=== PATIENT | male | born 1950 | race Caucasian/White ===

== ENCOUNTER → 2019-04-28 09:31 | Outpatient (BNVA) | payer MEDICARE, MEDICAID, SELFPAY | PROVIDERS: Family Provider Family Medicine; PCP Nurse Practitioner Family; Visit Provider Nurse Practitioner | DX: M51.16 Intervertebral disc disorders with radiculopathy, lumbar region (principal); M47.9 Spondylosis, unspecified; M54.2 Cervicalgia; F17.210 Nicotine dependence, cigarettes, uncomplicated; Z79.891 Long term (current) use of opiate analgesic | CPT/HCPCS: 99214 ==

== ENCOUNTER → 2019-06-23 09:50 | Outpatient (BNVA) | payer MEDICARE, MEDICAID, SELFPAY | PROVIDERS: Family Provider Family Medicine; PCP Nurse Practitioner Family; Visit Provider Anesthesiology | DX: Z76.89 Persons encountering health services in other specified circumstances (principal) ==

== ENCOUNTER → 2019-08-05 11:21 | Outpatient (BNVA) | payer MEDICARE, MEDICAID, SELFPAY | PROVIDERS: Family Provider Family Medicine; PCP Nurse Practitioner Family; Visit Provider Nurse Practitioner Family | DX: E11.9 Type 2 diabetes mellitus without complications (principal); I10 Essential (primary) hypertension; R79.89 Other specified abnormal findings of blood chemistry; Z12.5 Encounter for screening for malignant neoplasm of prostate | CPT/HCPCS: 80053; 83036; 84153; 84403; 84439; 84443 ==

== ENCOUNTER → 2019-08-10 10:44 | Outpatient (BNVA) | payer MEDICARE, MEDICAID, SELFPAY | PROVIDERS: Family Provider Family Medicine; PCP Nurse Practitioner Family; Visit Provider Nurse Practitioner Family | DX: E87.1 Hypo-osmolality and hyponatremia (principal) | CPT/HCPCS: 80053 ==

== ENCOUNTER → 2019-10-27 08:39 | Outpatient (BNVA) | payer MEDICARE, MEDICAID, SELFPAY | PROVIDERS: Family Provider Family Medicine; PCP Nurse Practitioner Family; Visit Provider Anesthesiology | DX: M51.16 Intervertebral disc disorders with radiculopathy, lumbar region (principal); M47.9 Spondylosis, unspecified; M54.9 Dorsalgia, unspecified; F17.210 Nicotine dependence, cigarettes, uncomplicated; Z79.891 Long term (current) use of opiate analgesic; Z71.6 Tobacco abuse counseling | CPT/HCPCS: 99214 ==

== ENCOUNTER → 2019-12-23 09:35 | Outpatient (BNVA) | payer MEDICARE, MEDICAID, SELFPAY | PROVIDERS: Family Provider Family Medicine; PCP Family Medicine; Visit Provider Nurse Practitioner | DX: M51.16 Intervertebral disc disorders with radiculopathy, lumbar region (principal); M54.2 Cervicalgia; M47.9 Spondylosis, unspecified; M54.9 Dorsalgia, unspecified; F98.8 Other specified behavioral and emotional disorders with onset usually occurring in childhood and adolescence; F17.210 Nicotine dependence, cigarettes, uncomplicated; Z79.891 Long term (current) use of opiate analgesic; Z71.6 Tobacco abuse counseling | CPT/HCPCS: 99214 ==

== ENCOUNTER → 2021-11-23 11:49 | Outpatient (BNVA) | payer MEDICARE, MEDICAID, SELFPAY | PROVIDERS: Family Provider Family Medicine; PCP Family Medicine; Visit Provider Internal Medicine | DX: I10 Essential (primary) hypertension (principal); E11.9 Type 2 diabetes mellitus without complications; Z79.84 Long term (current) use of oral hypoglycemic drugs; G47.30 Sleep apnea, unspecified; F17.210 Nicotine dependence, cigarettes, uncomplicated; R06.00 Dyspnea, unspecified; I45.10 Unspecified right bundle-branch block | CPT/HCPCS: 36415; 80053; 83880; 93005; 99204 ==

== ENCOUNTER → 2021-12-19 08:51 | Outpatient (BNVA) | payer MEDICARE, MEDICAID, SELFPAY | PROVIDERS: Family Provider Family Medicine; PCP Family Medicine; Visit Provider Podiatrist Foot & Ankle Surgery | DX: E11.42 Type 2 diabetes mellitus with diabetic polyneuropathy (principal); I73.9 Peripheral vascular disease, unspecified; L60.3 Nail dystrophy; M21.622 Bunionette of left foot; M21.621 Bunionette of right foot; M21.612 Bunion of left foot; M21.611 Bunion of right foot; M21.42 Flat foot [pes planus] (acquired), left foot; M21.41 Flat foot [pes planus] (acquired), right foot; M20.42 Other hammer toe(s) (acquired), left foot; M20.41 Other hammer toe(s) (acquired), right foot | CPT/HCPCS: 11721; 99204 ==

== ENCOUNTER → 2022-02-08 13:42 | Outpatient (BNVA) | payer MEDICARE, MEDICAID, SELFPAY | PROVIDERS: Family Provider Family Medicine; PCP Family Medicine; Visit Provider Nurse Practitioner Family | DX: I10 Essential (primary) hypertension (principal); F17.210 Nicotine dependence, cigarettes, uncomplicated | CPT/HCPCS: 99213 ==

== ENCOUNTER 2022-03-15 11:57 | Emergency (ER) | payer MEDICARE, MEDICAID, SELFPAY ==
[2022-03-15] VITALS (17 sets, daily range): BP systolic 167–194; BP diastolic 81–98; PULSE 94–107; RESP 10–22; TEMP 37.1; O2SAT 92–100; BMI 41.8
--- NOTE | 2022-03-15 12:03 | XR_ITS ---
WS: [id number] Exam: XR chest 1V portable [id number] Date/Time of Exam: 03/15/2022 12:03 PM Reason For Exam: dyspnea/cough No priors. The lungs are fully expanded. No acute infiltrates are noted. Mild bibasal plaque atelectasis. Heart size top limits normal. The mediastinum is normal in contour for technique. Unremarkable bony element s. XR/XR chest 1V portable [id number] IMPRESSION: 1. No acute cardio pulmonary process. 2. Mild bibasal plaque atelectasis.
--- NOTE | 2022-03-15 12:03 | ECG_ITS ---
[facility] Test Date: 2022-03-15 Pat Name: Tom Reyez Department: Room: Gender: Male Surgical Aide: : 1950 Requested By: Blane Patiño Order Number: [id number] Reuben MD: Asa Daley M.D. Measurements Intervals [place] Rate: 95 P: -21 TN: 102 QRS: -19 QRSD: 92 T: 135 QT: 326 QTc: 411 Interpretive Statements SINUS RHYTHM WITH SINUS ARRHYTHMIA WITH SHORT TN INTERVAL LOW QRS VOLTAGE IN PRECORDIAL LEADS [QRS DEFLECTION < 1.0 mV IN CHEST LEADS] ABNORMAL QRS-T ANGLE [QRS-T AXIS DIFFERENCE > 60] No previous ECG available for comparison Electronically Signed On 03-15-2022 12:55:25 LEAD CARGOMAN by Asa Daley M.D. [id number]
[2022-03-15 12:24] LABS: Basophils % 0.4 %; Eosinophils # 0.1 10^3/uL (0.0-0.8); Hemoglobin 9.6 g/dL (11.7-16.6); Lymphocytes # 1.1 10^3/uL (0.8-4.8); Mean Platelet Volume 9.6 fL (7.4-10.4); Monocytes # 0.5 10^3/uL (0.2-0.9); Monocytes % 5.6 %; Neutrophils # 7.75 10^3/uL (1.8-7.7); Neutrophils % 79.9 %; Nucleated Red Blood Cells % 0 %; Platelet Count 226 10^3/cmm (130-400); Red Cell Distribution Width 13.2 % (12.1-15.1); White Blood Count 9.7 10^3/uL (4.0-10.0)
[2022-03-15 12:46] LABS: Alanine Aminotransferase 17 U/L (0-41); Albumin Level 3.2 g/dL (3.5-5.2); Alkaline Phosphatase 92 U/L (40-130); Anion Gap 14.7 (5-19); Aspartate Amino Transferase 21 U/L (0-40); Blood Urea Nitrogen 35 mg/dL (8-23); Calcium 8.9 mg/dL (8.5-10.5); Carbon Dioxide 25 mmol/L (22-29); Chloride 105 mmol/L (98-107); Globulin 2.8 g/dL (1.3-4.6); Glucose 138 mg/dL (65-115); Osmolality Calculated 298 mOsm/kg (285-295); Potassium 5.7 mmol/L (3.5-5.1); Sodium 139 mmol/L (136-145); Total Bilirubin 0.2 mg/dL (0.15-1.2)
--- NOTE | 2022-03-15 13:13 | ED_ITS ---
HPI - SOB/Dyspnea General: Chief Complaint: Shortness of Breath/Dyspnea Stated Complaint: SOB Time Seen by Provider: 03/15/22 12:02 Source: patient Mode of arrival: ambulatory History of Present Illness: HPI Narrative: 71-year-old male presents emergency room planing of shortness of breath. He said increasing shortness of breath decreasing stamina for the last several days decedent walked 50 feet he stated he needed to use his CPAP to recover. Normally wears 2 mL per of oxygen per minute at night. He has a history of hypertension and COPD as well. Patient states he was seen in the local clinic s tarted on Lasix and discharged home with Flomax. Comes in today with persistent if not worsening symptoms. Interestingly he has not had a lot of orthopnea. MD elicited complaint: shortness of breath and cough Pertinent past history: COPD and congestive heart failure Onset (ago): day(s) Context: recent illness Timing: constant Severity: moderate Exacerbating factors: nothing Relieving factors: nothing Known history of: congestive heart failure Associated symptoms: Deny abdominal pain, chest congestion, chest pain, cough, diaphoresis, dizziness, extremity pain, fever(s), hemoptysis, lightheadedness, myalgias, nausea, orthopnea, palpitations, paresthesias, polydipsia, polyuria, rash, sense of impending doom, syncope or vomiting Treatment prior to arrival: none Review of Systems Const: Denies: fever(s), chills, fatigue, malaise or diaphoresis ENMT: Denies: throat pain, ear or mastoid pain, nasal discharge or nasal congestion Card: Reports: edema; Denies: chest pain, palpitations, lightheadedness, syncope or orthopnea Resp: Reports: dyspnea; Denies: productive cough, non-productive cough, wheezing, hemoptysis or chest congestion GI: Denies: abdominal pain, nausea or vomiting : Denies: flank pain, dysuria, urinary frequency or urinary urgency Musc: Denies: extremity pain Skin/Breast: Denies: rash or pruritus Neuro: Denies: dizziness Endo: Denies: polyuria or polydipsia [facility] ED PFSH: Medical History (Updated 03/15/22 @ 14:49 by Blane Lowe DO) ADD (attention deficit disorder) without hyperactivity COPD (chronic obstructive pulmonary disease) Enrolled in chronic care management Essential hypertension Long-term current use of opiate analgesic Low testosterone Lumbar disc disease with radiculopathy Pain management contract signed Sleep apnea Spondylosis Cervical and lumbar Tobacco use disorder Type 2 diabetes mellitus Surgical History History of total left hip replacement (2004) RIGHT SIDE - 2004 Hx of arthroscopic knee surgery (~1999) LEFT Hx of umbilical hernia repair (~1985) Family History Sister Hypertension Brother Diabetes Social History Smoking and tobacco status: current every day smoker cigarettes Packs smoked per day: 1 Alcohol intake: former Former alcohol use details: states that he has not drank in 15 years Lives independently: Yes History of recent travel: No Physical Exam Const: GENERAL APPEARANCE: cooperative and comfortable ORIENTATION/CONSCIOUSNESS: Yes awake, Yes oriented to person, Yes oriented to place and Yes oriented to time HENMT: COMMON NORMALS: normocephalic, atraumatic and hearing grossly normal bilaterally HEAD & SCALP: normocephalic and atraumatic Resp: COMMON NORMALS: normal respiratory effort, No retractions, No use of accessory muscles and clear to auscultation bilaterally AUSCULTATION: clear to auscultation bilaterally Cardio: COMMON NORMALS: regular rate, regular rhythm and No murmurs present (Cardio) RATE: regular rate RHYTHM: regular rhythm GI: COMMON NORMALS: Soft to palpation and No hepatosplenomegaly present AUSCULTATION: Yes normoactive bowel sounds PALPATION: Yes Soft to palpation, No Tenderness to palpation present (GI), No Guarding due to palpation present (GI) and Yes No hepatosplenomegaly present Extremity: COMMON NORMALS: normal to inspection, capillary refill normal, no clubbing, cyanosis or edema, no calf tenderness and no pedal edema GENERAL: Yes edema Neuro: SENSORIUM/ORIENTATION: Yes oriented to person, Yes oriented to place and Yes oriented to time Skin: COMMON NORMALS: no rashes or lesions noted GENERAL SKIN EXAM: no deedee hes or lesions noted Course Vital Signs: Vital signs: Vital Signs Temperature 98.7 F 03/15/22 12:05 Pulse Rate 99 03/15/22 15:30 Respiratory Rate 14 03/15/22 15:30 Blood Pressure 194/88 03/15/22 15:45 Pulse Oximetry 96 03/15/22 15:30 Oxygen Delivery Me thod 03/15/22 12:05 Oxygen Flow Rate 2 03/15/22 12:05 Fraction of Inspir ed Oxygen 2 03/15/22 13:32 MDM - SOB/Dyspnea Medical Decision Making Improved after diuresis in the ER along with nebulizers oxygen sats at baseline with 2 L. Heart rate improved we will discharge patient home. Increase his Lasix. His creatinine is elevated but on the labs we have its been trending and looks like around to is his baseline currently. Also put him on a steroid burst and taper and encourage aggressive use of nebulized medications. Medical Records I reviewed the patient's medical records. Lab Data I reviewed the patient's lab results. 03/15/22 12:00 03/15/22 12:00 Labs/Radiology: Radiology Impressions Chest X-Ray 03/15/22 12:03 IMPRESSION: 1. No acute cardio pulmonary process. 2. Mild bibasal plaque atelectasis. Laboratory Results WBC 9.7 10^3/uL (4.0-10.0) 03/15/22 12:00 RBC 3.00 10^6/uL (4.1-5.3) L 03/15/22 12:00 Hgb 9.6 g/dL (11.7-16.6) L 03/15/22 12:00 Hct 30.0 % (42.0-52.0) L 03/15/22 12:00 MCV 100.0 fl (80-94) H 03/15/22 12:00 MCH 32.0 pg (28.0-34.0) 03/15/22 12:00 MCHC 32.0 g/dL (30.0-36.0) 03/15/22 12:00 RDW 13.2 % (12.1-15.1) 03/15/22 12:00 Plt Count 226 10^3/cmm (130-400) 03/15/22 12:00 MPV 9.6 fL (7.4-10.4) 03/15/22 12:00 Neut % (Auto) 79.9 % 03/15/22 12:00 Lymph % (Auto) 11.0 % 03/15/22 12:00 [place] % (Auto) 5.6 % 03/15/22 12:00 Eos % (Auto) 1.0 % 03/15/22 12:00 Baso % (Auto) 0.4 % 03/15/22 12:00 Neut # (Auto) 7.75 10^3/uL (1.8-7.7) H 03/15/22 12:00 Lymph # (Auto) 1.1 10^3/uL (0.8-4.8) 03/15/22 12:00 [place] # (Auto) 0.5 10^3/uL (0.2-0.9) 03/15/22 12:00 Eos # (Auto) 0.1 10^3/uL (0.0-0.8) 03/15/22 12:00 Baso # (Auto) 0.0 10^3/uL (0.0-0.1) 03/15/22 12:00 Nucleated RBC % (auto) 0 % 03/15/22 12:00 Nucleated RBCs # 0.0 /100WBC 03/15/22 12:00 Sodium 139 mmol/L (136-145) 03/15/22 12:00 Potassium 5.7 mmol/L (3.5-5.1) H 03/15/22 12:00 Chloride 105 mmol/L (98-107) 03/15/22 12:00 Carbon Dioxide 25 mmol/L (22-29) 03/15/22 12:00 Anion Gap 14.7 (5-19) 03/15/22 12:00 BUN 35 mg/dL (8-23) H 03/15/22 12:00 Creatinine 2.0 mg/dL (0.7-1.2) H 03/15/22 12:00 GFR Calculation Not Reportable 03/15/22 12:00 Glucose 138 mg/dL (65-115) H 03/15/22 12:00 Calculated Osmolality 298 mOsm/kg (285-295) H 03/15/22 12:00 Calcium 8.9 mg/dL (8.5-10.5) 03/15/22 12:00 Total Bilirubin 0.2 mg/dL (0.15-1.2) 03/15/22 12:00 AST 21 U/L (0-40) 03/15/22 12:00 ALT 17 U/L (0-41) 03/15/22 12:00 Alkaline Phosphatase 92 U/L (40-130) 03/15/22 12:00 Total Protein 6.0 g/dL (6.6-8.7) L 03/15/22 12:00 Albumin 3.2 g/dL (3.5-5.2) L 03/15/22 12:00 Globulin 2.8 g/dL (1.3-4.6) 03/15/22 12:00 Discharge Plan Discharge Patient Disposition: Home Clinical Impression: Acute exacerbation of chronic obstructive airways disease, Congestive heart failure Condition: Stable Prescriptions: New ipratropium-albuterol 0.5 mg-3 mg(2.5 mg base)/3 mL solution for nebulization 3 ml inhalation Q6H PRN (Reason: shortness of breath or wheezing) Qty: 180 0RF prednisone 20 mg tablet 20 mg PO TID Qty: 15 0RF Rx Instructions: 1 p.o. 3 times daily x3 days, 1 p.o. twice daily x2 days, 1 p.o. daily x2 days Lasix 40 mg tablet 40 mg PO QAM Qty: 10 0RF No Action cholecalciferol (vitamin D3) 125 mcg (5,000 unit) capsule 125 mcg PO DAILY albuterol sulfate [ProAir HFA] 90 mcg/actuation HFA aerosol inhaler 2 puff inhalation QID fluticasone propionate [Flonase Allergy Relief] 50 mcg/actuation spray,heath spension 1 spray intranasal BID Rx Instructions: administer into each nostril hydrochlorothiazide 25 mg tablet 25 mg PO DAILY PRN (Reason: Edema) Dose Instruction: TAKE 1 TABLET BY MOUTH DAILY ibuprofen 200 mg capsule 200 mg PO Q6H PRN (Reason: Pain) naproxen sodium [Aleve] 220 mg capsule 220 mg PO DAILY PRN (Reason: Pain) metformin 850 mg tablet 850 mg PO BID Qty: 60 0RF celecoxib 200 mg capsule 200 mg PO BID tamsulosin 0.4 mg capsule 0.4 mg PO DAILY hydralazine 50 mg tablet 50 mg PO BID amlodipine 10 mg tablet 5 mg PO DAILY gemfibrozil 600 mg tablet 600 mg PO BID duloxetine 60 mg capsule,delayed release(DR/EC) 60 mg PO DAILY Men's 50 Plus Multivitamin 400-20-370 mcg Tablet 1 tab PO DAILY Discharge Orders: Discharge ED (Routine); Ordered 03/15/22 Ordered By: Blane Lowe Referrals: Ike Arzate MD [Primary Care Provider] - Discharge Diet: Cardiac Discharge Activity: Increase activity as tolerated Patient Instructions: Opioid Safety, Pain Management Activity Restrictions/Additional Instructions: You are seen today for difficulty breathing with mild congestive heart failure and exacerbation of COPD. You improved after nebulizers and a little bit of diuresis. Will discharge home with steroid taper use nebulizers every 4 hours while awake and Lasix 40 mg once a day for the next 5 to 7 days recheck with your regular doctor in the next week. Return for further problems. Coding Level of Care Code ED [employer] Supervisor for [place] Fwd Exam Detailed
[2022-03-15] MEDS: ipratropium-albuterol 3 mL Neb INHALATION (13:29)
[2022-03-15] MEDS: FUROsemide 10 mg/mL SDV 10mL 60 MG IVP (14:11)
== END 2022-03-15 15:50 | disposition home or self-care (01) ==
PROVIDERS: Emergency Provider Family Medicine; PCP Family Medicine
DX: J44.1 Chronic obstructive pulmonary disease with (acute) exacerbation (principal); I11.0 Hypertensive heart disease with heart failure; I50.9 Heart failure, unspecified; Z79.84 Long term (current) use of oral hypoglycemic drugs; F17.210 Nicotine dependence, cigarettes, uncomplicated; E11.9 Type 2 diabetes mellitus without complications
CPT/HCPCS: 71045; 80053; 85025; 93005; 94640; 96374; 96375; 99285; J1940; J2930

== ENCOUNTER → 2022-04-19 14:27 | Outpatient (BNVA) | payer MEDICARE, MEDICAID, SELFPAY | PROVIDERS: PCP Family Medicine; Visit Provider Podiatrist Foot & Ankle Surgery | DX: E11.8 Type 2 diabetes mellitus with unspecified complications (principal); E11.42 Type 2 diabetes mellitus with diabetic polyneuropathy; M20.41 Other hammer toe(s) (acquired), right foot; M20.42 Other hammer toe(s) (acquired), left foot; M21.41 Flat foot [pes planus] (acquired), right foot; M21.42 Flat foot [pes planus] (acquired), left foot; M21.611 Bunion of right foot; M21.612 Bunion of left foot; M21.621 Bunionette of right foot; M21.622 Bunionette of left foot; L60.3 Nail dystrophy; I73.9 Peripheral vascular disease, unspecified | CPT/HCPCS: 11721 ==

== ENCOUNTER → 2022-06-21 13:14 | Outpatient (BNVA) | payer MEDICARE, MEDICAID, SELFPAY | PROVIDERS: PCP Family Medicine; Visit Provider Podiatrist Foot & Ankle Surgery | DX: E11.42 Type 2 diabetes mellitus with diabetic polyneuropathy (principal); M20.41 Other hammer toe(s) (acquired), right foot; M20.42 Other hammer toe(s) (acquired), left foot; M21.41 Flat foot [pes planus] (acquired), right foot; M21.42 Flat foot [pes planus] (acquired), left foot; M21.611 Bunion of right foot; M21.612 Bunion of left foot; M21.621 Bunionette of right foot; M21.622 Bunionette of left foot; L60.3 Nail dystrophy; I73.9 Peripheral vascular disease, unspecified; Z79.84 Long term (current) use of oral hypoglycemic drugs | CPT/HCPCS: 11721 ==

== ENCOUNTER → 2022-08-09 15:28 | Outpatient (BNVA) | payer MEDICARE, MEDICAID, SELFPAY | PROVIDERS: PCP Family Medicine; Visit Provider Internal Medicine | DX: I10 Essential (primary) hypertension (principal); E11.9 Type 2 diabetes mellitus without complications; G47.30 Sleep apnea, unspecified; F17.210 Nicotine dependence, cigarettes, uncomplicated | CPT/HCPCS: 99214 ==

== ENCOUNTER → 2022-09-20 13:43 | Outpatient (BNVA) | payer MEDICARE, MEDICAID, SELFPAY | PROVIDERS: PCP Family Medicine; Visit Provider Podiatrist Foot & Ankle Surgery | DX: E11.42 Type 2 diabetes mellitus with diabetic polyneuropathy (principal); L60.3 Nail dystrophy; I73.9 Peripheral vascular disease, unspecified; M21.622 Bunionette of left foot; M20.41 Other hammer toe(s) (acquired), right foot; M20.42 Other hammer toe(s) (acquired), left foot; M21.41 Flat foot [pes planus] (acquired), right foot; M21.42 Flat foot [pes planus] (acquired), left foot; M21.611 Bunion of right foot; M21.612 Bunion of left foot; M21.621 Bunionette of right foot; Z79.84 Long term (current) use of oral hypoglycemic drugs | CPT/HCPCS: 11721 ==

== ENCOUNTER → 2022-11-29 11:07 | Outpatient (BNVA) | payer MEDICARE, MEDICAID, SELFPAY | PROVIDERS: PCP Family Medicine; Visit Provider Podiatrist Foot & Ankle Surgery | DX: E11.42 Type 2 diabetes mellitus with diabetic polyneuropathy (principal); M21.611 Bunion of right foot; M21.612 Bunion of left foot; M21.621 Bunionette of right foot; M21.622 Bunionette of left foot; L60.3 Nail dystrophy; I73.9 Peripheral vascular disease, unspecified; Z79.84 Long term (current) use of oral hypoglycemic drugs | CPT/HCPCS: 11721 ==

== ENCOUNTER → 2023-02-13 13:35 | Outpatient (BNVA) | payer MEDICARE, MEDICAID, SELFPAY | PROVIDERS: PCP Family Medicine; Visit Provider Nurse Practitioner Family | DX: I10 Essential (primary) hypertension (principal) | CPT/HCPCS: 99213 ==

== ENCOUNTER → 2023-03-01 13:22 | Outpatient (BNVA) | payer MEDICARE, MEDICAID, SELFPAY | PROVIDERS: PCP Family Medicine; Visit Provider Podiatrist Foot & Ankle Surgery | DX: L60.3 Nail dystrophy (principal); I73.9 Peripheral vascular disease, unspecified; E11.42 Type 2 diabetes mellitus with diabetic polyneuropathy; Z79.84 Long term (current) use of oral hypoglycemic drugs | CPT/HCPCS: 11721 ==

== ENCOUNTER → 2023-09-10 13:50 | Outpatient (BNVA) | payer MEDICARE, MEDICAID, SELFPAY | PROVIDERS: PCP Family Medicine; Visit Provider Podiatrist Foot & Ankle Surgery | DX: L60.3 Nail dystrophy (principal); I73.9 Peripheral vascular disease, unspecified; E11.42 Type 2 diabetes mellitus with diabetic polyneuropathy; Z79.84 Long term (current) use of oral hypoglycemic drugs | CPT/HCPCS: 11721 ==

== ENCOUNTER → 2023-11-26 11:30 | Outpatient (BNVA) | payer MEDICARE, MEDICAID, SELFPAY | PROVIDERS: PCP Family Medicine; Visit Provider Podiatrist Foot & Ankle Surgery | DX: E11.8 Type 2 diabetes mellitus with unspecified complications (principal); L60.3 Nail dystrophy; I73.9 Peripheral vascular disease, unspecified; E11.42 Type 2 diabetes mellitus with diabetic polyneuropathy; Z79.84 Long term (current) use of oral hypoglycemic drugs | CPT/HCPCS: 11721 ==

== ENCOUNTER → 2023-12-26 10:35 | Outpatient (BNVA) | payer MEDICARE, MEDICAID, SELFPAY | PROVIDERS: PCP Family Medicine; Visit Provider Internal Medicine Cardiovascular Disease | DX: I49.8 Other specified cardiac arrhythmias (principal); R07.9 Chest pain, unspecified; I45.89 Other specified conduction disorders; R94.31 Abnormal electrocardiogram [ECG] [EKG] | CPT/HCPCS: 93005 ==

== ENCOUNTER 2024-01-23 11:15 | Outpatient (CLI) | payer MEDICARE, MEDICAID, SELFPAY ==
--- NOTE | 2024-01-23 11:15 | USCV_ITS ---
Tom Reyez Age: 73 Gender: M : 1950 Exam Date: 01/23/2024 11:28 Ordering Phys: Danielle Morejon MD ([email or web address]) Technologist: WHITNEY Exam Location: [facility] [place] Indication: BP: / HR: 75 Rhythm: Sinus Technical Quality: Adequate MEASUREMENTS (Male / Female) Normal Values 2D ECHO LV Diastolic Diameter PLAX 3.4 cm 4.2 - 5.9 / 3.9 - 5.3 cm IVS Diastolic Thickness 1.6 cm 0.6 - 1.0 / 0.6 - 0.9 cm IVS Systolic Thickness 1.9 cm LVPW Diastolic Thickness 1.7 cm 0.6 - 1.0 / 0.6 - 0.9 cm LVPW Systolic Thickness 2.0 cm LVOT Diameter 2.0 cm LV Ejection Fraction 2D Teich 44.2 % LV Ejection Fraction MOD 4C 24.2 % LV Ejection Fraction MOD 2C 43.6 % LV Ejection Fraction 2C AL 36.3 % LA Diameter 2.4 cm RA Systolic Volume 4C AL 15.7 ml RA Systolic Volume 4C MOD 16.5 ml LA Sys Volume AL 55.3 cm cubed LA Sys Volume Index AL 23.8 cm cubed/m squared Aorta at Sinotubular Diameter 2.8 cm IVC Diameter 1.3 cm M-MODE LA Ao Ratio MM 2.0 AV Cusp Separation MM 1.4 cm DOPPLER AV Peak Velocity 231.3 cm/s LVOT Peak Velocity 78.0 cm/s AV Area Cont Eq vti 0.9 cm squared AV Area Cont Eq pk 1.1 cm squared MV Area PHT 8.5 cm squared Mitral E to A Ratio 0.5 TR Peak Velocity 147.0 cm/s TR Peak Gradient 8.6 mmHg TR Mean Velocity 102.0 cm/s TR Mean Gradient 5.3 mmHg TR Velocity Time Integral 32.7 cm TV Peak E Velocity 57.0 cm/s Right Atrial Pressure 3.0 mmHg Pulmonary Artery Systolic Pressu 11.6 mmHg PV Peak Velocity 104.0 cm/s FINDINGS Left Ventricle Normal LV size and ejection fraction of 55%. Mild concentric left-ventricular hypertrophy.Grade I/IV diastolic dysfunction (abnormal relaxation filling pattern), normal to mildly elevated filling pressures. Right Ventricle The right ventricle is normal in size and function. Right Atrium The right atrium is normal in size. Left Atrium Normal left atrial size. Mitral Valve Thickened mitral valve. Mild mitral annular calcification. Aortic Valve Moderately severe low gradient aortic valve stenosis with a peak velocity of 2.5m/s. Valve area was calculated to be 0.93 cm squared Tricuspid Valve No gross abnormalities noted Pulmonic Valve Not visualized well Pericardium No pericardial effusion. Aorta Normal aortic annulus size. IVC The inferior vena cava appears normal. CONCLUSIONS Normal LV size and ejection fraction of 55%. Mild concentric left-ventricular hypertrophy.Grade I/IV diastolic dysfunction (abnormal relaxation filling pattern), normal to mildly elevated filling pressures. Thickened mitral valve. Mild mitral annular calcification. Moderately severe low gradient, possibly normal flow aortic valve stenosis with a peak velocity of 2.5m/s. Valve area was calculated to be 0.93 cm squared. There is no pericardial effusion. There are no intracardiac masses. No similar previous studies are available for comparison Dr Danielle Morejon MD FACC (Electronically Signed) Final Date: 26 January 2024 18:58 S
== END 2024-01-23 11:16 | disposition home or self-care (01) ==
PROVIDERS: PCP Family Medicine; Visit Provider Internal Medicine Cardiovascular Disease
DX: I50.30 Unspecified diastolic (congestive) heart failure (principal); I34.81 Nonrheumatic mitral (valve) annulus calcification; I35.0 Nonrheumatic aortic (valve) stenosis; R06.09 Other forms of dyspnea
CPT/HCPCS: 93306

== ENCOUNTER → 2024-03-03 11:30 | Outpatient (BNVA) | payer MEDICARE, MEDICAID, SELFPAY | PROVIDERS: PCP Family Medicine; Visit Provider Podiatrist Foot & Ankle Surgery | DX: L60.3 Nail dystrophy (principal); I73.9 Peripheral vascular disease, unspecified; E11.42 Type 2 diabetes mellitus with diabetic polyneuropathy | CPT/HCPCS: 11721 ==

== ENCOUNTER → 2024-03-12 10:30 | Outpatient (BNVA) | payer MEDICARE, MEDICAID, SELFPAY | PROVIDERS: PCP Family Medicine; Visit Provider Nurse Practitioner Family | DX: I35.0 Nonrheumatic aortic (valve) stenosis (principal); I12.0 Hypertensive chronic kidney disease with stage 5 chronic kidney disease or end stage renal disease; E11.22 Type 2 diabetes mellitus with diabetic chronic kidney disease; N18.6 End stage renal disease; Z99.2 Dependence on renal dialysis; F17.210 Nicotine dependence, cigarettes, uncomplicated; G47.33 Obstructive sleep apnea (adult) (pediatric) | CPT/HCPCS: 99214 ==

== ENCOUNTER → 2024-05-05 12:41 | Outpatient (BNVA) | payer MEDICARE, MEDICAID, SELFPAY | PROVIDERS: PCP Family Medicine; Visit Provider Podiatrist Foot & Ankle Surgery | DX: E11.8 Type 2 diabetes mellitus with unspecified complications (principal); L60.3 Nail dystrophy; I73.9 Peripheral vascular disease, unspecified; E11.42 Type 2 diabetes mellitus with diabetic polyneuropathy; R03.0 Elevated blood-pressure reading, without diagnosis of hypertension | CPT/HCPCS: 11721 ==

== ENCOUNTER → 2024-07-07 10:37 | Outpatient (BNVA) | payer MEDICARE, MEDICAID, SELFPAY | PROVIDERS: PCP Family Medicine; Visit Provider Internal Medicine Cardiovascular Disease | DX: I35.0 Nonrheumatic aortic (valve) stenosis (principal); I12.0 Hypertensive chronic kidney disease with stage 5 chronic kidney disease or end stage renal disease; E11.22 Type 2 diabetes mellitus with diabetic chronic kidney disease; N18.6 End stage renal disease; Z99.2 Dependence on renal dialysis; R06.02 Shortness of breath; Z72.0 Tobacco use | CPT/HCPCS: 99214 ==

== ENCOUNTER 2024-07-17 11:26 | Outpatient (CLI) | payer MEDICARE, MEDICAID, SELFPAY ==
--- NOTE | 2024-07-17 11:15 | USCV_ITS ---
Tom Reyez Age: 73 Gender: M : 1950 Exam Date: 07/17/2024 11:43 Ordering Phys: Daniella Valdez Technologist: BALTAZAR Exam Location: [facility] [place] Indication: Aortic Stenosis BP: 140 / 70 HR: 84 Rhythm: Sinus Technical Quality: Adequate MEASUREMENTS (Male / Female) Normal Values 2D ECHO LV Diastolic Diameter PLAX 5.5 cm 4.2 - 5.9 / 3.9 - 5.3 cm IVS Diastolic Thickness 0.9 cm 0.6 - 1.0 / 0.6 - 0.9 cm IVS Systolic Thickness 1.9 cm LVPW Diastolic Thickness 1.1 cm 0.6 - 1.0 / 0.6 - 0.9 cm LVPW Systolic Thickness 1.7 cm LVOT Diameter 2.3 cm LV Ejection Fraction 2D Teich 59.1 % LV Ejection Fraction MOD 4C 48.8 % LV Ejection Fraction MOD 2C 47.4 % LV Ejection Fraction 2C AL 52.5 % LA Diameter 4.0 cm RA Systolic Volume 4C AL 50.4 ml RA Systolic Volume 4C MOD 47.9 ml LA Sys Volume AL 49.0 cm cubed LA Sys Volume Index AL 20.9 cm cubed/m squared Aorta at Sinotubular Diameter 2.4 cm IVC Diameter 2.5 cm M-MODE LA Ao Ratio MM 1.6 AV Cusp Separation MM 0.9 cm DOPPLER AV Peak Velocity 311.0 cm/s LVOT Peak Velocity 160.0 cm/s AV Area Cont Eq vti 2.5 cm squared AV Area Cont Eq pk 2.0 cm squared MV Peak Velocity 175.0 cm/s MV Area PHT 4.9 cm squared Mitral E to A Ratio 0.5 TR Peak Velocity 159.0 cm/s TR Peak Gradient 10.1 mmHg TV Peak E Velocity 50.0 cm/s PV Peak Velocity 101.0 cm/s FINDINGS Left Ventricle Normal left ventricular size, systolic function and wall thickness, with no regional wall motion abnormalities. Left ventricular ejection fraction is estimated at 60 %. Grade I/IV diastolic dysfunction (abnormal relaxation filling pattern), normal to mildly elevated filling pressures. Right Ventricle The right ventricle is normal in size and function. Right Atrium The right atrium is normal in size. Left Atrium The left atrium is normal in size. Mitral Valve Moderately thickened mitral valve. No mitral valve stenosis. Trace mitral valve regurgitation. Aortic Valve Moderate aortic valve calcification. Mild aortic valve stenosis, mean gradient 19.4 mmHg, FLO 2.5 cm squared. Trace aortic valve regurgitation. Tricuspid Valve Structurally normal tricuspid valve without significant stenosis or regurgitation. Pulmonary artery systolic pressure is normal. Pulmonic Valve Structurally normal pulmonic valve without significant stenosis. There is no pulmonic regurgitation. Pericardium Normal pericardium without effusion. Aorta Normal ascending aorta dimension. IVC The inferior vena cava appears normal. CONCLUSIONS Normal left ventricular size, systolic function and wall thickness, with no regional wall motion abnormalities. Left ventricular ejection fraction is estimated at 60 %. Grade I/IV diastolic dysfunction (abnormal relaxation filling pattern), normal to mildly elevated filling pressures. Moderate aortic valve calcification. Mild aortic valve stenosis, mean gradient 19.4 mmHg, FLO 2.5 cm squared. Trace aortic valve regurgitation. There is no pericardial effusion. Right atrial pressure is around 5 mm of mercury. Tresa Cam MD (Electronically Signed) Final Date: 09 Aug 2024 17:08 S
== END 2024-07-17 11:27 | disposition home or self-care (01) ==
LOC: RAD 11:27
PROVIDERS: PCP Family Medicine; Visit Provider Nurse Practitioner Family
DX: I35.0 Nonrheumatic aortic (valve) stenosis (principal); R93.1 Abnormal findings on diagnostic imaging of heart and coronary circulation; I05.9 Rheumatic mitral valve disease, unspecified; I35.8 Other nonrheumatic aortic valve disorders
CPT/HCPCS: 93306

== ENCOUNTER 2024-07-24 09:26 | Outpatient (CLI) | payer MEDICARE, MEDICAID, SELFPAY ==
--- NOTE | 2024-07-24 | ECG_ITS ---
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 The perfusion scan will be documented separately. DATA: Baseline heart rate was 84 beats per minute. Baseline blood pressure was 138/82 millimeters of mercury. Target heart rate was 146. Maximum heart rate achieved was 98. which was 67% of the predicted target heart rate. Maximum blood pressure was 136/86 millimeters of mercury. The reason for ending the test was completion of the protocol. The patient did not experience any symptoms. ELECTROCARDIOGRAM: BASELINE: Sinus rhythm. Normal axis. Baseline mild inferolateral ST abnormality EXERCISE: After Lexiscan injection, no ST-T changes suggestive of ischemic noted. No arrhythmia noted. CONCLUSION: Please note due to baseline abnormality of the EKG specificity and sensitivity of the EKG portion of LexiScan MIBI stress test will be low 1. EKG not suggestive of ischemia 2. Lexiscan injection unremarkable. 3. Perfusion scan will be documented separately. Electronically Signed On 08-02-2024 17:33:40 CDT by VIRGINIA TANG [email or web address] [id number]
--- NOTE | 2024-07-24 09:38 | NMCV_ITS ---
NM patsy perf SPECT r/s* [id number] Tom Reyez Age: 73 Gender: M : 1950 Exam Date: 07/24/2024 10:45 Ordering Phys: Danielle Morejon MD ([email or web address]) Technologist: TIFFANIE Whatley Exam Location: [facility] Indications: cp STRESS TEST [facility] IMAGE PROTOCOL Rest/Stress 1 Lexiscan Day Radiopharmaceutical Dose (mCi) Administration Site Administered by Rest: Tc-99m 10.9 IV TIFFANIE Whatley Sestamibi Stress:Tc-99m 32.6 IV TIFFANIE Dumont Sestamibi Rest: 24-Jul-2024 60 Discovery 630 Stress: 24-Jul-2024 30 Discovery 630 0.4mg Lexiscan. Supine position only as patient was unable to lay prone. Patient was imaged with right arm down to his side for rest and stress images. SPECT RESULTS Technical Quality: Good Raw Data Analysis: Normal Image Corrections: No attenuation or motion correction applied Summed Stress Score: 7 Summed Rest Score: 7 Summed Difference Score: 2 PERFUSION FINDINGS Medium sized area of fixed perfusion defect noted from basal to distal inferior wall suggestive of old myocardial infarction versus scarring surrounded by small area of reversibility suggestive of small area of flora-infarct ischemia. FUNCTIONAL RESULTS (calculated via Gated SPECT) Stress Image LV EF (%): 51 Stress EDV (mL):143 TID: 1.11 Stress ESV (mL):70 FUNCTIONAL FINDINGS: Basal to distal inferior wall hypokinesis, TID ratio is elevated which could be secondary to multivessel coronary artery disease or subendocardial ischemia due to left ventricular hypertrophy. IMPRESSIONS Medium sized area of fixed perfusion defect noted from basal to distal inferior wall suggestive of old myocardial infarction versus scarring surrounded by small area of reversibility suggestive of small area of flora-infarct ischemia. Tresa Cam MD (Electronically Signed) Final Date: 28 Jul 2024 15:23 S
[2024-07-24 09:47] VITALS: BMI 36.5
[2024-07-24] MEDS: regadenoson 0.4 Mg/5 ml Syringe IVP (11:17)
[2024-07-24 11:36] VITALS: BP 114/68; PULSE 67
== END 2024-07-24 09:27 | disposition home or self-care (01) ==
LOC: CDL 09:30
PROVIDERS: PCP Family Medicine; Visit Provider Internal Medicine Cardiovascular Disease
DX: R06.02 Shortness of breath (principal); R93.1 Abnormal findings on diagnostic imaging of heart and coronary circulation
CPT/HCPCS: 36415; 78452; 93017; 96374; A9500; J2785

== ENCOUNTER → 2024-12-10 10:36 | Outpatient (BNVA) | payer MEDICARE, MEDICAID, SELFPAY | PROVIDERS: PCP Family Medicine; Visit Provider Internal Medicine Cardiovascular Disease | DX: I12.0 Hypertensive chronic kidney disease with stage 5 chronic kidney disease or end stage renal disease (principal); E11.22 Type 2 diabetes mellitus with diabetic chronic kidney disease; N18.6 End stage renal disease; Z99.2 Dependence on renal dialysis; I35.0 Nonrheumatic aortic (valve) stenosis; J44.9 Chronic obstructive pulmonary disease, unspecified; Z72.0 Tobacco use | CPT/HCPCS: 99214 ==